=== PATIENT | male | born 1995 | race Caucasian/White ===

== ENCOUNTER 2017-12-04 06:11 | Emergency (ER) | payer SELFPAY ==
[~2017-12-04] VITALS: Ht 175.3 cm; Wt 66.8 kg
[2017-12-04 06:15] VITALS: Ht 175.3 cm; Wt 66.8 kg
[2017-12-04 06:45] VITALS: BP 143/90
== END 2017-12-04 07:46 | disposition home or self-care (01) ==
LOC: ED 06:11
DX: M54.5 Low back pain (principal)
CPT/HCPCS: J1885